=== PATIENT | female | born 1955 | race African-American/Black ===

== ENCOUNTER → 2016-12-25 | Day surgery (SDC) | payer MEDICAID ==
[~2016-12-25] VITALS: Ht 160 cm; Wt 82.2 kg
[~2016-12-25] MED LIST: *HYDROmorphone PF 1 MG VIAL PERIprocedural Use ONLY ONE; *ONDANSETRON 4 MG VIAL PERIprocedural Use ONLY ONE; ALBU6.7H INH; ALBUAER3 INH; AMIT25TA9 PO; AMLO10TA2 PO; ASPI81TA5 PO; ATEN100T PO; ATOR40TA16 PO; BLOOD GLUCOSE T1 TES; BUPIVACAINE HCL PF 0.5% 30 ML VIAL INFIL ONE; CHOL100025 CHEW; CLINDAMYCIN PHOS 900 MG/6 ML VIAL ONE; DEXAMETHASONE SOD PHOS 4 MG/ML VIAL ONE; DEXT 5%-NACL 0.45% 1000 ML INJ 1,000 ML IV SCH; DO NOT ADM ANY ANTICOAGULANT DRUGS XX PRN; FAMOTIDINE 20 MG/2 ML VIAL ONE; FLUT50SP EACH NARE; HYDR25TA5 PO; HYDR50TA3 PO; IBUP800T23 PO; INSU-170; INSU-98; LACTATED RINGER'S 1000 ML INJ 1,000 ML ONE; LANTUS2P SQ; LIDOCAINE HCL 2% 50 ML VIAL INFIL ONE; LISI40TA PO; MIDAZOLAM HCL 2 MG/2 ML VIAL ONE; MORPHINE SULFATE 10 MG/ML INJ ONE; ONDANSETRON HCL 4 MG/2 ML VIAL IV PUSH ONE; ONETTES4; PERC5TAB12 PO; POVIDONE IODINE 10% OINT 1 PACKET TOP ONE; PROPOFOL 200 MG/20 ML AMP IV ONE; QUET150XR PO; SODIUM CHLORIDE 0.9% FLUSH 5 ML FLUSH IVF PRN; SODIUM CHLORIDE 0.9% FLUSH 5 ML FLUSH IVF SCH; SODIUM CHLORIDE 0.9% INJ 100 ML ONE; ePHEDrine/NS 25 MG/5 ML SYR IV ONE
[2016-12-25 06:42] VITALS: BP 145/78; PULSE 77; RESP 18; TEMP 97.8; O2SAT 99
[2016-12-25 06:57] LABS: HEMATOCRIT 35.4 % (35.0-46.0); MEAN CELL VOLUME 86.3 FL (80.0-100.0); MEAN CORPUSCULAR HGB CONC 34.7 % (32.0-36.0); PLATELET COUNT 203 TH/MM3 (150-450); RED CELL DISTRIBUTION WIDTH 12.9 % (11.6-17.2); REVIEW FLAG FINAL; WHITE BLOOD COUNT 14.4 TH/MM3 (4.0-11.0)
--- NOTE | 2016-12-25 07:57 | HP.UPD ---
H&P Update Date: Dec 25, 2016 Note The Pre-Admit History and Physical Examination regarding the above named patient was reviewed (including, but not limited to, vital signs, medications, allergies, co-morbid conditions), and upon re-examination it is noted that: Indicated with "X" x - the patient's condition has not significantly changed since the last examination. [] - the patient's condition has changed since the last examination. Changes: Elisa Maurer MD Dec 25, 2016 07:57
--- NOTE | 2016-12-25 08:58 | HHI.PR ---
Immediate Post Op Note Procedure Date: Dec 25, 2016 Pre Op Diagnosis: (1) Trigger finger, left ring finger Post Op Diagnosis: (1) Trigger finger, left ring finger Surgeon: Elisa Maurer MD Kiln Charger(s): Scottie Loza PA-C Procedure: Release of the left ring trigger finger. Anesthesia: General Drains: None Tourniquet time (min at mmHg) 13 minutes at 200 mm Hg Patient to: PACU Patient Condition: Good Date/Time of Procedure: SEE SURGICAL CARE RECORD Elisa Maurer MD Dec 25, 2016 08:58
[2016-12-25 10:23] VITALS: TEMP 98
[2016-12-25 11:00] VITALS: BP 108/64; PULSE 70; RESP 15; O2SAT 99
--- NOTE | 2016-12-27 10:37 | MP ---
cc: JUNE SALAZAR M.D. DATE OF SURGERY: 12/25/2016 PREOPERATIVE DIAGNOSIS Stenosing tenosynovitis of the left ring finger. POSTOPERATIVE DIAGNOSIS Stenosing tenosynovitis of the left ring finger. PROCEDURE: Tenovaginotomy of the left ring finger. ANESTHESIA: General. SURGEON Dr. Salazar INDICATION The patient is a 61-year-old female with stenosing tenosynovitis of the left finger. FINDINGS: At the completion of the procedure, there was complete passive range of motion of the finger with no evidence of clicking or locking. The A1 naila was quite thick. TOURNIQUET TIME: 13 minutes. DESCRIPTION OF PROCEDURE: The patient was seen preoperatively where the site and side identified and marked. The patient was then taken to the operating room, placed in supine position. Her identity was checked against the arm band and the consent form, site and side confirmed, time-out called prior to beginning of the procedure. The left upper extremity was prepped with Hibiclens and draped in the usual sterile fashion. The area to be incised was outlined with a marking pen as an oblique incision over the A1 naila. The arm was then exsanguinated and the tourniquet inflated to 200 mmHg. Lidocaine 2% plain mixed in equal amounts with bupivacaine 0.5% plain was then injected at the area to be operated. A 15 blade was used make the incision down through the skin, down through the subcutaneous tissue. Using a spread technique the A1 naila was identified and divided. The finger was put through a full range of motion. There was some adhesions between the superficial and deep flexors and these were divided. The tendons were pulled and this showed excellent range of motion. The wound was then copiously irrigated with saline and closed with a running 5-0 nylon suture. The tourniquet was then released after 13 minutes of tourniquet time, pressure was applied. After several minutes there was no evidence of any oozing. A dressing was applied using povidone-iodine ointment, Adaptic Telfa, 4x4s and hand wrap. The patient was then taken from the operating room to the recovery room in satisfactory condition having tolerated the procedure well. Postoperative instructions include keeping the arm elevated, keeping it clean and dry, and returning in several days for follow up. The patient was given a prescription for ibuprofen. MD DONNIE Lema/RAJIV /8:59 AM /10:31 AM
== END | disposition home or self-care (01) ==
LOC: PHSDC 06:12
PROVIDERS: ATTEND Specialist
DX: M65.342 Trigger finger, left ring finger (principal); M65.842 Other synovitis and tenosynovitis, left hand; E11.9 Type 2 diabetes mellitus without complications; I10 Essential (primary) hypertension
CPT/HCPCS: 01810; 26055; 36415; 82948; 85027; J1100; J1170; J2250; J2270; J2405; J3010; J7120

== ENCOUNTER → 2017-03-19 | Day surgery (SDC) | payer MEDICAID ==
[~2017-03-19] VITALS: Ht 160 cm; Wt 86.5 kg
[~2017-03-19] MED LIST changes: -*HYDROmorphone PF 1 MG VIAL PERIprocedural Use ONLY ONE; -*ONDANSETRON 4 MG VIAL PERIprocedural Use ONLY ONE; -ALBU6.7H INH; -BUPIVACAINE HCL PF 0.5% 30 ML VIAL INFIL ONE; +BUPIVACAINE HCL PF 0.5% 30 ML VIAL ONE; -DEXAMETHASONE SOD PHOS 4 MG/ML VIAL ONE; -DO NOT ADM ANY ANTICOAGULANT DRUGS XX PRN; -HYDR25TA5 PO; -LIDOCAINE HCL 2% 50 ML VIAL INFIL ONE; +MEPERIDINE HCL 25 MG/ML VIAL ONE; +METOPROLOL TARTRATE 25 MG TAB ONE; -MORPHINE SULFATE 10 MG/ML INJ ONE; -POVIDONE IODINE 10% OINT 1 PACKET TOP ONE; +POVIDONE IODINE 10% OINT 1 PACKET TOPICAL ONE; +SODIUM CHLOR 0.9% 250 ML INJ 250 ML ONE; +[UNRECOGNIZED DRUG - CODE]; +[UNRECOGNIZED DRUG - CODE]
[2017-03-19 07:40] VITALS: BP 146/84; PULSE 85; RESP 16; TEMP 98.2; O2SAT 100
[2017-03-19 08:10] LABS: HEMATOCRIT 38.9 % (35.0-46.0); MEAN CELL VOLUME 86.5 FL (80.0-100.0); MEAN CORPUSCULAR HEMOGLOBIN 28.8 PG (27.0-34.0); MEAN CORPUSCULAR HGB CONC 33.3 % (32.0-36.0); PLATELET COUNT 226 TH/MM3 (150-450); RED CELL DISTRIBUTION WIDTH 13.2 % (11.6-17.2)
[2017-03-19 08:16] LABS: REVIEW FLAG FINAL
--- NOTE | 2017-03-19 08:39 | HP.UPD ---
H&P Update Date: Mar 19, 2017 Note The Pre-Admit History and Physical Examination regarding the above named patient was reviewed (including, but not limited to, vital signs, medications, allergies, co-morbid conditions), and upon re-examination it is noted that: Indicated with "X" x - the patient's condition has not significantly changed since the last examination. [] - the patient's condition has changed since the last examination. Changes: Elisa Maurer MD Mar 19, 2017 08:38
--- NOTE | 2017-03-19 12:01 | HHI.PR ---
Immediate Post Op Note Procedure Date: Mar 19, 2017 Pre Op Diagnosis: (1) Injury of digital nerve of finger Injury to radial digital nerve, left ring finger. Post Op Diagnosis: (1) Injury of digital nerve of finger Injury to radial digital nerve, left ring finger. Surgeon: Elisa Maurer MD Tipple Supervisor(s): Scottie Loza PA-C Procedure: Neurolysis, radial digital nerve of left ring finger with application of nerve wrap. Complications: n/a Specimen(s) removed: n/a Estimated blood loss: n/a Anesthesia: General Drains: None Tourniquet time (min at mmHg) 48 minutes at 220mmHg Patient to: PACU Patient Condition: Good Date/Time of Procedure: SEE SURGICAL CARE RECORD Teressa Loza Mar 19, 2017 12:01
[2017-03-19 13:30] VITALS: BP 128/86; PULSE 88; TEMP 98; O2SAT 96
[2017-03-19 13:40] VITALS: RESP 16
--- NOTE | 2017-03-19 22:04 | MP ---
cc: JUNE SALAZAR MD DATE OF SURGERY 03/19/17 PREOPERATIVE DIAGNOSIS Nerve pain and injury radial digital nerve of the left ring finger. POSTOPERATIVE DIAGNOSIS Nerve pain and injury radial digital nerve of the left ring finger. PROCEDURE Neurolysis and application of nerve wrap of the radial digital nerve of the left ring finger. ANESTHESIA General SURGEON Selin Salazar MD ASSOCIATE TRAINER Tawana Loza PA-C. INDICATIONS A 61-year-old female who has had an injection of steroid into her left fourth finger for trigger finger. She developed severe pain and continued to have triggering. The trigger was released, but the patient continued to have pain. Workup revealed the presence of dysfunction of the radial digital nerve of the left ring finger. FINDINGS The nerve itself appeared to be intact. There was some scar tissue around the nerve at the completion of the procedure. Neurolysis has been performed and a nerve wrap placed around the finger. TOURNIQUET TIME 48 minutes. PROCEDURE IN DETAIL The patient was seen preoperatively where the site and side were identified and marked. The patient was then taken to the operating room, placed in a supine position. Her identity was checked against the arm band and the consent form, site and side confirmed, time-out called prior to beginning the procedure. The left upper extremity was prepped with Hibiclens and draped in usual sterile fashion. The area to be incised was outlined with a marking pen as a zigzag incision over the area of the radial digital nerve in the palm where the patient had been injected. The arm was exsanguinated and the tourniquet inflated to 220 mmHg. Bupivacaine 0.5% plain was used to make a common digital nerve block to the middle and ring fingers as well as a dorsal block. A #15 blade was then used to make the incision down through the skin down to the subcutaneous tissue under loupe magnification. The flap was elevated and raised exposing the nerve. The tissue around the nerve was lysed,and a Pacinian corpuscle which was sitting on top of the nerve was removed. The nerve itself appeared to be intact and there was no evidence of a neuroma in continuity. The decision was made to put a nerve wrap at the neurolysis. A 2 mm nerve guide was taken and cut the right size. It was then opened longitudinally and placed around the nerve and closed with 8-0 Ethilon suture material under loupe magnification. Once this was completed, the seam was placed on the dorsal aspect of the nerve. The wound was irrigated with saline and injected with additional bupivacaine 0.5% plain and closed with interrupted and running 5-0 Prolene. The tourniquet was released after 48 minutes of tourniquet time. Pressure was applied. After several minutes, there was no evidence of any oozing. A dressing was applied using povidone-iodine ointment, Adaptic, Telfa, fluffy gauze and hand wrap and a splint. The patient was then taken from the operating room to the recovery room in satisfactory condition having tolerated the procedure well. Postoperative instructions include keeping the arm elevated, keeping it clean and dry and returning in several days for follow up. MD DONNIE Lema/ /12:03 PM /9:50 PM KATARZYNA
== END | disposition home or self-care (01) ==
LOC: PHSDC 07:14
PROVIDERS: ATTEND Specialist
DX: S64.495A Injury of digital nerve of left ring finger, initial encounter (principal); M79.2 Neuralgia and neuritis, unspecified; E11.9 Type 2 diabetes mellitus without complications; J44.9 Chronic obstructive pulmonary disease, unspecified; Z01.818 Encounter for other preprocedural examination
CPT/HCPCS: 01810; 36415; 64910; 82948; 85027; 94664; C9352; J2175; J2250; J2405; J7120; J7050

== ENCOUNTER 2017-06-04 09:00 | Emergency (ER) | payer MEDICAID ==
[~2017-06-04] VITALS: Ht 160 cm; Wt 89.0 kg
[~2017-06-04 09:00] MED LIST changes: -AMIT25TA9 PO; -BUPIVACAINE HCL PF 0.5% 30 ML VIAL ONE; -CHOL100025 CHEW; -CLINDAMYCIN PHOS 900 MG/6 ML VIAL ONE; -DEXT 5%-NACL 0.45% 1000 ML INJ 1,000 ML IV SCH; -FAMOTIDINE 20 MG/2 ML VIAL ONE; -IBUP800T23 PO; -INSU-170; -INSU-98; -LACTATED RINGER'S 1000 ML INJ 1,000 ML ONE; +MEDR4PAK PO; -MEPERIDINE HCL 25 MG/ML VIAL ONE; -METOPROLOL TARTRATE 25 MG TAB ONE; -MIDAZOLAM HCL 2 MG/2 ML VIAL ONE; -ONDANSETRON HCL 4 MG/2 ML VIAL IV PUSH ONE; -POVIDONE IODINE 10% OINT 1 PACKET TOPICAL ONE; -PROPOFOL 200 MG/20 ML AMP IV ONE; -SODIUM CHLOR 0.9% 250 ML INJ 250 ML ONE; -SODIUM CHLORIDE 0.9% FLUSH 5 ML FLUSH IVF PRN; -SODIUM CHLORIDE 0.9% FLUSH 5 ML FLUSH IVF SCH; -SODIUM CHLORIDE 0.9% INJ 100 ML ONE; -ePHEDrine/NS 25 MG/5 ML SYR IV ONE
[2017-06-04 09:05] VITALS: BP 121/81; PULSE 92; RESP 18; TEMP 98; O2SAT 99
[2017-06-04] MEDS ORDERED: OXYC-395 PO (09:47)
[2017-06-04] MEDS ORDERED: ACETAMINOPHEN/HYDROcodone 325 MG/5 MG TAB PO ONE (10:00)
--- NOTE | 2017-06-04 11:04 | RADRPT ---
EXAM DATE/TIME: 06/04/2017 10:21 [facility] COMPARISON: No previous studies available for comparison. INDICATIONS : Left knee pain after falling today. MEDICAL HISTORY : Hypertension. Chronic obstructive pulmonary disease. SURGICAL HISTORY : Total knee replacement, left. ENCOUNTER: Initial ACUITY: 1 day PAIN SCORE: 10/10 LOCATION: Left knee FINDINGS: There is a left knee arthroplasty in place. Osseous structures appear intact without evidence for acu te fracture. The arthroplasty components are in anatomic alignment without evidence for lucency to dalton ggest loosening. Surgical chris in the soft tissues with small suprapatellar effusion. CONCLUSION: 1. Left knee arthroplasty in anatomic alignment without evidence for hardware failure. 2. No acute fracture or dislocation. Anand Rodriguez MD on June 04, 2017 at 11:00 Board Certified Radiologist. This report was verified electronically.
--- NOTE | 2017-06-04 11:09 | RADRPT ---
EXAM DATE/TIME: 06/04/2017 10:18 [facility] COMPARISON: No previous studies available for comparison. INDICATIONS : Left hip pain after falling today. MEDICAL HISTORY : Hypertension. Chronic obstructive pulmonary disease. SURGICAL HISTORY : Total knee replacement, left. ENCOUNTER: Initial ACUITY: 1 day PAIN SCORE: 10/10 LOCATION: Left proximal FINDINGS: AP view of the pelvis with 4 views of the left hip joint demonstrate no acute fracture or dislocation . Mineralization is normal. There is joint space narrowing and osteophytes at the hip joints bilatera lly. No soft tissue abnormality or radiopaque foreign body is identified. CONCLUSION: Bilateral hip joint osteoarthritis. No acute finding is identified. Zen Real MD on June 04, 2017 at 11:06 Board Certified Radiologist. This report was verified electronically.
[2017-06-04 11:36] VITALS: RESP 17
--- NOTE | 2017-06-04 12:28 | PD ---
HPI Chief Complaint: Fall Time Seen by Provider: 09:38 Travel History International Travel<30 days: No Contact w/Intl Traveler<30days: No Traveled to known affect area: No History of Present Illness HPI Is a 41-year-old woman presents emergent Priddy of left knee pain. She had recent surgery for left knee replacement in [place]. She was discharged home a couple days ago. She states she's been unsteady and fell. She has supposed to have home health arranged for states no one is calm. She states she was trying to sit to her bedside commode the day given her but she fell because it was too low. Her surgery was May [address] Campbell in [place]. History Past Medical History Narrative Medical Hypertension Diabetes Social History Alcohol Use: No Tobacco Use: Yes (10 CIGARETTES/DAY ) Allergies-Medications (Allergen,Severity, Reaction): Coded Allergies: ampicillin (Verified Allergy, Severe, Lethargy, HIVES, 06/04/17) meloxicam (Verified Allergy, Severe, Itching, 06/04/17) morphine (Verified Allergy, Severe, Itching, 06/04/17) acetaminophen (Verified Adverse Reaction, Severe, Nausea/Vomiting, 06/04/17 ) propoxyphene (Verified Adverse Reaction, Severe, Nausea/Vomiting, 06/04/17) Reported Meds & Prescriptions Reported Meds & Active Scripts Active Lantus Inj (Insulin Glargine) 100 Unit/Ml Inj 90 Units SQ DAILY 90 units at 6am Proair Hfa 8.5 GM Inh (Albuterol Sulfate) 90 Mcg/Act Aer 1 Puff INH Q4H PRN 108 mcg/actuation Fluticasone Nasal [place] 50 Mcg/Act Naspr 50 Mcg EACH NARE BID 50 mcg/spray Seroquel XR (Quetiapine Fumarate) 150 Mg Tab 150 Mg PO DAILY Aspirin DR (Aspirin) 81 Mg Tabdr 81 Mg PO DAILY Amlodipine (Amlodipine Besylate) 10 Mg Tab 10 Mg PO DAILY Atorvastatin (Atorvastatin Calcium) 40 Mg Tab 40 Mg PO HS Lisinopril 40 Mg Tab 40 Mg PO DAILY Atenolol 100 Mg Tab 100 Mg PO DAILY Hydrochlorothiazide 50 Mg Tab 50 Mg PO DAILY Reported Oxycodone (Oxycodone HCl) 10 Mg Tab 10 Mg PO Q4H PRN Review of Systems Except as stated in HPI: all other systems reviewed are Neg Physical Exam Narrative GENERAL: Well-appearing 62 year-old woman, no acute distress. SKIN: Focused skin assessment warm/dry. HEAD: Atraumatic. Normocephalic. EYES: Pupils equal and round. No scleral icterus. No injection or drainage. ENT: No nasal bleeding or discharge. Mucous membranes pink and moist. NECK: Trachea midline. No JVD. CARDIOVASCULAR: Regular rate and rhythm. No murmur appreciated. RESPIRATORY: No accessory muscle use. Clear to auscultation. Breath sounds equal bilaterally. GASTROINTESTINAL: Abdomen soft, non-tender, nondistended. Hepatic and splenic margins not palpable. MUSCULOSKELETAL: No obvious deformities. Left knee is healing well. The incisions well approximated with chris still in place. Is a little bit of effusion a little warm. There is no erythema or redness. Some tenderness. Limited range of motion. NEUROLOGICAL: Awake and alert. No obvious cranial nerve deficits. Motor grossly within normal limits. Normal speech. PSYCHIATRIC: Appropriate mood and affect; insight and judgment normal. Data Data Last Documented VS Vital Signs Date Time Temp Pulse Resp B/P (MAP) Pulse Ox O2 Delivery O2 Flow Rate FiO2 06/04/17 11:36 17 06/04/17 09:05 98.0 92 121/81 (94) 99 Orders Orders Hip, Ap Only W Ap Pelvis (06/04/17 ) Knee, Complete (4vws) (06/04/17 ) Acetamin-Hydrocod 325-5 Mg ([place] 5-325 (06/04/17 10:00) Oxycodone (Roxicodone) (06/04/17 10:15) MDM Medical Decision Making Medical Screen Exam Complete: Yes Emergency Medical Condition: Yes Differential Diagnosis Left knee pain, fall, instability, other Narrative Course Medical decision making This 62 year-old woman status post left knee replacement presents with a fall from home. She looks well. No evidence significant injuries. She is tearful and crying and having a lot of concerns about her rehabilitation. She doesn't state it's unclear if she just doesn't know what's happening or if they just didn't set up a good enough discharge plan. manager regional looked indurated her Medicaid insurance only pay for a few days appropriate long term and rehabilitation. They will not pay for home physical therapy. We can get her an elevated toilet seat, I will set her up for physical therapy at the [address] [place] [id number], we'll give her prescription for home health nursing. Diagnosis Primary Impression: Left knee pain Patient Instructions: General Instructions Additional Instructions: Follow-up with a [address] [place] [id number] for outpatient physical therapy as discussed. Follow-up with your surgeon in [place] in the next one to 2 days. Med/Other Pt SpecificInfo: No Change to Meds Disposition: 01 DISCHARGE HOME Condition: Stable Angel Mayen MD Jun 04, 2017 12:28
--- NOTE | 2017-06-04 12:29 | HHI.FF ---
Face to Face Verification Diagnosis: (1) Status post left knee replacement (2) Falls (3) Left knee pain Home Health Nursing Order: Medical education Signs/symptoms of disease process Nursing assessment with vital signs Home Health Aide Order: To Assist In: Bathing and personal care, sliver cutter and meal prep I have seen patient Bonnie Anguiano on 06/04/17. My clinical findings support the need for the requested home health care services because: Ltd mobility - disease progression High risk of falls I certify that my clinical findings support that this patient is homebound because: Impaired cognitive ability/safety Unsteady gait/balance Unsafe to leave home unassisted Angel Mayen MD Jun 04, 2017 12:29
[2017-06-04] MEDS ORDERED: RAISED TOILET S1 MI1 (12:31)
[2017-06-04 13:23] VITALS: BP 128/83; TEMP 97.9
[2017-07-08] MEDS ORDERED: LISI40TA PO (06:47)
[2017-07-08] MEDS ORDERED: HYDR50TA3 PO (06:47)
[2017-07-08] MEDS ORDERED: LANTUS2P SQ (06:47)
[2017-07-08] MEDS ORDERED: ALBUAER3 INH (06:47)
[2017-07-08] MEDS ORDERED: PERI8.6T PO (06:47)
[2017-07-08] MEDS ORDERED: ATEN100T PO (06:47)
[2017-07-08] MEDS ORDERED: FLUT50SP EACH NARE (06:47)
[2017-07-08] MEDS ORDERED: QUET150XR PO (06:47)
[2017-07-08] MEDS ORDERED: ASPI81TA5 PO (06:47)
[2017-07-08] MEDS ORDERED: ATOR40TA16 PO (06:47)
[2017-07-08] MEDS ORDERED: AMLO10TA2 PO (06:47)
[2017-07-08] MEDS ORDERED: APIX5TAB PO (07:01)
== END 2017-06-04 13:22 | disposition home or self-care (01) ==
LOC: NEPD 09:00
DX: M25.562 Pain in left knee (principal); I10 Essential (primary) hypertension; E11.9 Type 2 diabetes mellitus without complications; F17.210 Nicotine dependence, cigarettes, uncomplicated; Z79.4 Long term (current) use of insulin; Z79.899 Other long term (current) drug therapy; Z79.82 Long term (current) use of aspirin; Z88.5 Allergy status to narcotic agent; Z88.8 Allergy status to other drugs, medicaments and biological substances
CPT/HCPCS: 73501; 73564; 99283

== ENCOUNTER 2017-07-07 17:26 | Emergency (ER) | payer MEDICAID ==
[~2017-07-07] VITALS: Ht 160 cm; Wt 75.0 kg
[~2017-07-07 17:26] MED LIST changes: -BLOOD GLUCOSE T1 TES; -MEDR4PAK PO; -ONETTES4; +OXYC-395 PO; -PERC5TAB12 PO; +RAISED TOILET S1 MI1; -[UNRECOGNIZED DRUG - CODE]; -[UNRECOGNIZED DRUG - CODE]
[2017-07-07 17:28] VITALS: BP 148/84; PULSE 126; RESP 18; TEMP 98; O2SAT 99
[2017-07-07] MEDS ORDERED: SODIUM CHLOR 0.9% 1000 ML INJ 1,000 ML IV ONE (18:30)
--- NOTE | 2017-07-07 18:46 | PD ---
HPI Chief Complaint: Cardiac Complaint Time Seen by Provider: 18:21 Travel History International Travel<30 days: No Contact w/Intl Traveler<30days: No Traveled to known affect area: No History of Present Illness HPI 62-year-old female patient with history of left knee replacement done by Dr. Mora on May 25, presents to the ER today because she states that she has been having a fast heart rate, is having more pain in the last 4 days in her right knee and down her right leg. She reports palpitations. She denies any chest pains, shortness of breath, fevers, or any other symptoms. She states that she is still waiting to get rehabilitation for her knee, has not been able to bend it since the surgery. She states that she had seen her primary care doctor today and was sent in to rule out blood clot in leg. Modifying Factors: None Associated Signs & Symptoms: Left knee replacement surgery, left leg pain Risk Factors: Recent surgery PFSH Past Medical History Hx Anticoagulant Therapy: Yes (ASA) Arthritis: Yes (RA) Autoimmune Disease: Yes (LUPUS) Anxiety: Yes Depression: Yes Cancer: No Cardiovascular Problems: Yes High Cholesterol: Yes COPD: Yes Diabetes: Yes Patient Takes Glucophage: No Diminished Hearing: No Endocrine: Yes Genitourinary: No Hepatitis: No Hiatal Hernia: No Herniated Disk: Yes Hypertension: Yes Immune Disorder: Yes (RA) Musculoskeletal: Yes (arthritis l knee , back and neck pain with herniated disc ) Psychiatric: Yes ( ) Reproductive: No Respiratory: Yes ( ) Thyroid Disease: No Past Surgical History Abdominal Surgery: Yes AICD: No Cardiac Surgery: No Ear Surgery: No Endocrine Surgery: No Eye Surgery: No Genitourinary Surgery: Yes (CYST REMOVED ) Gynecologic Surgery: No Joint Replacement: No Oral Surgery: No Pacemaker: No Thoracic Surgery: No Other Surgery: Yes Family History Family Myocardial Infarction: Yes Social History Alcohol Use: No Tobacco Use: Yes (10 CIGARETTES/DAY ) Substance Use: No Allergies-Medications (Allergen,Severity, Reaction): Coded Allergies: ampicillin (Verified Allergy, Severe, Lethargy, HIVES, 07/07/17) meloxicam (Verified Allergy, Severe, Itching, 07/07/17) morphine (Verified Allergy, Severe, Itching, 07/07/17) acetaminophen (Verified Adverse Reaction, Severe, Nausea/Vomiting, 07/07/17 ) propoxyphene (Verified Adverse Reaction, Severe, Nausea/Vomiting, 07/07/17) Reported Meds & Prescriptions Reported Meds & Active Scripts Active Raised Toilet Seat/Lock (Device) 1 Mis Mis Ea .ROUTE DIRECTED Lantus Inj (Insulin Glargine) 100 Unit/Ml Inj 90 Units SQ DAILY 90 units at 6am Proair Hfa 8.5 GM Inh (Albuterol Sulfate) 90 Mcg/Act Aer 1 Puff INH Q4H PRN 108 mcg/actuation Fluticasone Nasal [place] 50 Mcg/Act Naspr 50 Mcg EACH NARE BID 50 mcg/spray Seroquel XR (Quetiapine Fumarate) 150 Mg Tab 150 Mg PO DAILY Aspirin DR (Aspirin) 81 Mg Tabdr 81 Mg PO DAILY Amlodipine (Amlodipine Besylate) 10 Mg Tab 10 Mg PO DAILY Atorvastatin (Atorvastatin Calcium) 40 Mg Tab 40 Mg PO HS Lisinopril 40 Mg Tab 40 Mg PO DAILY Atenolol 100 Mg Tab 100 Mg PO DAILY Hydrochlorothiazide 50 Mg Tab 50 Mg PO DAILY Reported Oxycodone (Oxycodone HCl) 10 Mg Tab 10 Mg PO Q4H PRN Review of Systems Except as stated in HPI: all other systems reviewed are Neg Physical Exam Narrative GENERAL: Well-developed elderly -[place] female patient currently in mild distress. Awake and oriented 3. SKIN: Focused skin assessment warm/dry. HEAD: Atraumatic. Normocephalic. EYES: Pupils equal and round. No scleral icterus. No injection or drainage. ENT: No nasal bleeding or discharge. Mucous membranes pink and moist. NECK: Trachea midline. No JVD. CARDIOVASCULAR: Fast and regular rhythm. No murmur appreciated. RESPIRATORY: No accessory muscle use. Clear to auscultation. Breath sounds equal bilaterally. GASTROINTESTINAL: Abdomen soft, non-tender, nondistended. Hepatic and splenic margins not palpable. MUSCULOSKELETAL: No obvious deformities. No clubbing. No cyanosis. No edema. EXTREMITIES: No clubbing, cyanosis, or edema. There is tenderness to palpation at the left knee, decreased range of motion due to pain, tenderness to palpation in the left calf area as well. NEUROLOGICAL: Awake and alert. No obvious cranial nerve deficits. Motor grossly within normal limits. Normal speech. PSYCHIATRIC: Appropriate mood and affect; insight and judgment normal. Data Data Last Documented VS Vital Signs Date Time Temp Pulse Resp B/P (MAP) Pulse Ox O2 Delivery O2 Flow Rate FiO2 07/07/17 18:43 100 Room Air 07/07/17 18:17 18 07/07/17 17:28 98.0 126 148/84 (105) Orders Orders Us Leg Venous Doppler (07/07/17 18:15) Complete Blood Count With Diff (07/07/17 18:21) Comprehensive Metabolic Panel (07/07/17 18:21) Prothrombin Time / Inr (Pt) (07/07/17 18:21) Act Partial Throm Time (Ptt) (07/07/17 18:21) Lactic Acid Sepsis Protocol (07/07/17 18:21) Blood Culture (07/07/17 18:21) Chest, Single Ap (07/07/17 18:21) Blood Glucose (07/07/17 18:21) Ecg Monitoring (07/07/17 18:21) Iv Access Insert/Monitor (07/07/17 18:21) Oximetry (07/07/17 18:21) Oxygen Administration (07/07/17 18:21) Sodium Chlor 0.9% 1000 Ml Inj (Ns 1000 M (07/07/17 18:30) Knee, Complete (4vws) (07/07/17 19:04) Labs Laboratory Tests Test 07/07/17 16:30 White Blood Count 14.5 TH/MM3 Red Blood Count 4.26 MIL/MM3 Hemoglobin 12.0 GM/DL Hematocrit 35.5 % Mean Corpuscular Volume 83.3 FL Mean Corpuscular Hemoglobin 28.1 PG Mean Corpuscular Hemoglobin Concent 33.7 % Red Cell Distribution Width 14.0 % Platelet Count 261 TH/MM3 Mean Platelet Volume 9.6 FL Neutrophils (%) (Auto) 57.1 % Lymphocytes (%) (Auto) 35.0 % Monocytes (%) (Auto) 5.7 % Eosinophils (%) (Auto) 1.3 % Basophils (%) (Auto) 0.9 % Neutrophils # (Auto) 8.3 TH/MM3 Lymphocytes # (Auto) 5.1 TH/MM3 Monocytes # (Auto) 0.8 TH/MM3 Eosinophils # (Auto) 0.2 TH/MM3 Basophils # (Auto) 0.1 TH/MM3 CBC Comment DIFF FINAL Differential Comment MDM Medical Decision Making Medical Screen Exam Complete: Yes Emergency Medical Condition: Yes Medical Record Reviewed: Yes Interpretation(s) Laboratory Tests Test 07/07/17 16:30 White Blood Count 14.5 TH/MM3 (4.0-11.0) Neutrophils # (Auto) 8.3 TH/MM3 (1.8-7.7) Lymphocytes # (Auto) 5.1 TH/MM3 (1.0-4.8) Differential Diagnosis Left knee and leg pains: Rule out DVT Narrative Course Ultrasound was ordered to rule out DVT. X-ray ordered to rule out acute fractures or hardware issues. Lab work ordered. Physician Communication Physician Communication Case is signed out to Dr. Cueva at 7 PM pending workup. Disposition based on workup. Diagnosis Primary Impression: Left leg pain Additional Impression: Status post left knee replacement Condition: Stable Renetta Melissa MD Jul 07, 2017 18:46
[2017-07-07 18:52] LABS: AUTOMATED NEUTROPHIL # 8.3 TH/MM3 (1.8-7.7); BASOPHIL # 0.1 TH/MM3 (0-0.2); BASOPHIL % 0.9 % (0.0-2.0); EOSINOPHIL # 0.2 TH/MM3 (0-0.4); EOSINOPHIL % 1.3 % (0.0-4.0); HEMATOCRIT 35.5 % (35.0-46.0); HEMO FLAGS DIFF FINAL; LYMPHOCYTE # 5.1 TH/MM3 (1.0-4.8); MEAN CELL VOLUME 83.3 FL (80.0-100.0); MEAN CORPUSCULAR HEMOGLOBIN 28.1 PG (27.0-34.0); MEAN CORPUSCULAR HGB CONC 33.7 % (32.0-36.0); MONO % 5.7 % (0.0-8.0); NEUT % 57.1 % (16.0-70.0); PLATELET COUNT 261 TH/MM3 (150-450); RED BLOOD COUNT 4.26 MIL/MM3 (4.00-5.30); WHITE BLOOD COUNT 14.5 TH/MM3 (4.0-11.0)
[2017-07-07 19:08] LABS: ANION GAP 9 MEQ/L (5-15); AST (GOT) 15 U/L (15-37); BICARBONATE 25.5 MEQ/L (21.0-32.0); BLOOD UREA NITROGEN 28 MG/DL (7-18); CHLORIDE 101 MEQ/L (98-107); GLOMERULAR FILTRATION RATE 25 ML/MIN (>89); POTASSIUM 4.3 MEQ/L (3.5-5.1); SODIUM (NA) 135 MEQ/L (136-145)
[2017-07-07 19:10] LABS: ALT (GPT) 20 U/L (10-53)
[2017-07-07 19:11] LABS: ALKALINE PHOSPHATASE 189 U/L (45-117); TOTAL BILIRUBIN ADULT 0.4 MG/DL (0.2-1.0)
--- NOTE | 2017-07-07 19:15 | RADRPT ---
EXAM DATE/TIME: 07/07/2017 18:50 [facility] COMPARISON: CHEST SINGLE AP, March 30, 2016, 0:35. INDICATIONS : Short of breath, high pulse rate. MEDICAL HISTORY : None. SURGICAL HISTORY : None. ENCOUNTER: Initial ACUITY: 3 days PAIN SCORE: 0/10 LOCATION: Bilateral chest FINDINGS: A single view of the chest demonstrates the lungs to be symmetrically aerated without evidence of mas s, infiltrate or effusion. The cardiomediastinal contours are unremarkable. Osseous structures are intact. CONCLUSION: No evidence of acute cardiopulmonary disease. Zen Kruger MD on July 07, 2017 at 19:13 Board Certified Radiologist. This report was verified electronically.
[2017-07-07 19:17] LABS: APTT (PATIENT) 29.4 SEC (24.3-30.1); PROTHROMBIN TIME - PATIENT 10.8 SEC (9.8-11.6)
--- NOTE | 2017-07-07 19:24 | RADRPT ---
EXAM DATE/TIME: 07/07/2017 18:58 [facility] COMPARISON: No previous studies available for comparison. INDICATIONS : Left leg edema. MEDICAL HISTORY : Hypercholesterolemia. Hypertension. Chronic obstructive pulmonary disease. Arthritis. Diabetes. Lupus. SURGICAL HISTORY : Fibroid surgery. Genitourinary surgery, cyst removal. Bilateral knee repair. Left rotator cuff juan antonio arelis. Abdominal surgery, unspecified. ENCOUNTER: Initial ACUITY: 3 days PAIN SCORE: 10/10 LOCATION: Left leg. TECHNIQUE: Venous ultrasound of the leg was performed from the inguinal ligament to the proximal calf. Real-janina e, color Doppler and spectral tracing, compression and augmentation techniques were used. FINDINGS: There is normal compressibility of the deep venous system from the inguinal region to the proximal ca lf. No echogenic clot is seen in the lumen of the common femoral, femoral, popliteal, and posterior tibial veins. There is a normal response of the venous system to proximal and distal augmentation an d respiration. CONCLUSION: No venous thrombus of the left lower extremity. Zen Kruger MD on July 07, 2017 at 19:22 Board Certified Radiologist. This report was verified electronically.
[2017-07-07] MEDS ORDERED: HYDROmorphone HCL PF 1 MG/ML VIAL IV PUSH ONE ×2 (19:45→20:15)
--- NOTE | 2017-07-07 19:48 | RADRPT ---
EXAM DATE/TIME: 07/07/2017 19:29 [facility] COMPARISON: KNEE LEFT COMPLETE (4VWS), June 04, 2017, 10:21. INDICATIONS : Left knee pain for weeks. MEDICAL HISTORY : Hypercholesterolemia. Hypertension. Chronic obstructive pulmonary disease. Arthritis. Diabetes. Lupus . SURGICAL HISTORY : Fibroid surgery. Genitourinary surgery, cyst removal. Bilateral knee repair. Left rotator cuff surger y. Abdominal surgery, unspecified. ENCOUNTER: Initial ACUITY: 1 week PAIN SCORE: 9/10 LOCATION: Left knee. FINDINGS: Left total arthroplasty changes are again noted. No fracture, subluxation or evidence of hardware alhaji lure/loosening. A small, nonspecific joint effusion is noted. Atherosclerosis of the popliteal artery again seen. CONCLUSION: Small, nonspecific joint effusion. Otherwise left knee radiographs within normal limits. Previous art hroplasty. Zen Kruger MD on July 07, 2017 at 19:45 Board Certified Radiologist. This report was verified electronically.
--- NOTE | 2017-07-07 19:55 | PD ---
Physical Exam Date Seen by Provider: Jul 07, 2017 Narrative FOCUSED EXAM: LEFT KNEE HAS NO ERYTHEMA, NO DRAINAGE, SURGICAL WOUND HEALING WELL, NO STREAKING, NO LAD. NVI. Data Data Last Documented VS Vital Signs Date Time Temp Pulse Resp B/P (MAP) Pulse Ox O2 Delivery O2 Flow Rate FiO2 07/07/17 18:43 100 Room Air 07/07/17 18:17 18 07/07/17 17:28 98.0 126 148/84 (105) Orders Orders Us Leg Venous Doppler (07/07/17 18:15) Complete Blood Count With Diff (07/07/17 18:21) Comprehensive Metabolic Panel (07/07/17 18:21) Prothrombin Time / Inr (Pt) (07/07/17 18:21) Act Partial Throm Time (Ptt) (07/07/17 18:21) Lactic Acid Sepsis Protocol (07/07/17 18:21) Blood Culture (07/07/17 18:21) Chest, Single Ap (07/07/17 18:21) Blood Glucose (07/07/17 18:21) Ecg Monitoring (07/07/17 18:21) Iv Access Insert/Monitor (07/07/17 18:21) Oximetry (07/07/17 18:21) Oxygen Administration (07/07/17 18:21) Sodium Chlor 0.9% 1000 Ml Inj (Ns 1000 M (07/07/17 18:30) Knee, Complete (4vws) (07/07/17 19:04) Hydromorphone Pf Inj (Dilaudid Pf Inj) (07/07/17 20:15) Labs Laboratory Tests Test 07/07/17 16:30 White Blood Count 14.5 TH/MM3 Red Blood Count 4.26 MIL/MM3 Hemoglobin 12.0 GM/DL Hematocrit 35.5 % Mean Corpuscular Volume 83.3 FL Mean Corpuscular Hemoglobin 28.1 PG Mean Corpuscular Hemoglobin Concent 33.7 % Red Cell Distribution Width 14.0 % Platelet Count 261 TH/MM3 Mean Platelet Volume 9.6 FL Neutrophils (%) (Auto) 57.1 % Lymphocytes (%) (Auto) 35.0 % Monocytes (%) (Auto) 5.7 % Eosinophils (%) (Auto) 1.3 % Basophils (%) (Auto) 0.9 % Neutrophils # (Auto) 8.3 TH/MM3 Lymphocytes # (Auto) 5.1 TH/MM3 Monocytes # (Auto) 0.8 TH/MM3 Eosinophils # (Auto) 0.2 TH/MM3 Basophils # (Auto) 0.1 TH/MM3 CBC Comment DIFF FINAL Differential Comment Prothrombin Time 10.8 SEC Prothromb Time International Ratio 1.0 RATIO Activated Partial Thromboplast Time 29.4 SEC Blood Urea Nitrogen 28 MG/DL Creatinine 2.42 MG/DL Random Glucose 207 MG/DL Total Protein 8.0 GM/DL Albumin 3.7 GM/DL Calcium Level 9.5 MG/DL Alkaline Phosphatase 189 U/L Aspartate Amino Transf (AST/SGOT) 15 U/L Alanine Aminotransferase (ALT/SGPT) 20 U/L Total Bilirubin 0.4 MG/DL Sodium Level 135 MEQ/L Potassium Level 4.3 MEQ/L Chloride Level 101 MEQ/L Carbon Dioxide Level 25.5 MEQ/L Anion Gap 9 MEQ/L Estimat Glomerular Filtration Rate 25 ML/MIN Lactic Acid Level 2.6 mmol/L [facility] Medical Record Reviewed: Yes Supervised Visit with JOSE: No Narrative Course NO DVT, NO LEFT SHIFT NOR LEUKOCYTOSIS, NO E/O CELLULITIS ON EXAMINATION. WILL D/C AND RECC FOLLOW UP WITH ORTHO FOR FURTHER EVALUATION AND CARE (PER PATIENT SHE HAS TAKEN PERCOCET BEFORE) Diagnosis Primary Impression: Left leg pain Additional Impression: Status post left knee replacement Additional Instruction: PLEASE TAKE DONA-COLACE TO AVOID CONSTIPATION WHENEVER YOU TAKE OR USE OXYCODONE FOR PAIN, ALSO CALL YOUR ORTHOPEDIST TO FOLLOW UP FOR FURTHER ASSISTANCE. TODAY NO EVIDENCE OF KNEE INFECTION, NO BLOOD CLOT TO EXTREMITY EITHER. Scripts Sennosides-Docusate Sodium (Dona-Colace) 8.6-50 Mg Tab 2 TAB PO BID for Constipation, #60 TAB 0 Refills Prov: Omero Cueva MD 07/07/17 Oxycodone (Oxycodone) 10 Mg Tab 10 MG PO Q4H Y for PAIN, #28 TAB 0 Refills Prov: Omero Cueva MD 07/07/17 Disposition: 01 DISCHARGE HOME Condition: Stable Omero Cueva MD Jul 07, 2017 19:55
[2017-07-07] MEDS ORDERED: OXYC-395 PO (20:11)
[2017-07-07] MEDS ORDERED: PERI8.6T PO (20:11)
[2017-07-07 20:40] LABS: LACTIC ACID GHOST NOT REPORTABLE
[2017-07-08] MEDS ORDERED: AMLO10TA2 PO (06:47)
[2017-07-08] MEDS ORDERED: QUET150XR PO (06:47)
[2017-07-08] MEDS ORDERED: FLUT50SP EACH NARE (06:47)
[2017-07-08] MEDS ORDERED: PERI8.6T PO (06:47)
[2017-07-08] MEDS ORDERED: LISI40TA PO (06:47)
[2017-07-08] MEDS ORDERED: ATOR40TA16 PO (06:47)
[2017-07-08] MEDS ORDERED: ATEN100T PO (06:47)
[2017-07-08] MEDS ORDERED: LANTUS2P SQ (06:47)
[2017-07-08] MEDS ORDERED: HYDR50TA3 PO (06:47)
[2017-07-08] MEDS ORDERED: ALBUAER3 INH (06:47)
[2017-07-08] MEDS ORDERED: ASPI81TA5 PO (06:47)
[2017-07-08] MEDS ORDERED: APIX5TAB PO (07:01)
[2017-08-04] MEDS ORDERED: ALBUAER3 INH (16:22)
[2017-08-04] MEDS ORDERED: FLUT50SP EACH NARE (16:22)
== END 2017-07-07 20:54 | disposition home or self-care (01) ==
LOC: NEPE 17:26
DX: M79.605 Pain in left leg (principal); R00.0 Tachycardia, unspecified; R00.2 Palpitations; M32.9 Systemic lupus erythematosus, unspecified; F41.9 Anxiety disorder, unspecified; J44.9 Chronic obstructive pulmonary disease, unspecified; E11.9 Type 2 diabetes mellitus without complications; I10 Essential (primary) hypertension; Z96.652 Presence of left artificial knee joint
CPT/HCPCS: 71010; 73564; 80053; 83605; 85025; 85610; 85730; 87040; 93971; 96374; 99285; J1170; J7030

== ENCOUNTER 2017-08-01 10:52 | Emergency (ER) | payer MEDICAID ==
[~2017-08-01] VITALS: Ht 160 cm; Wt 81.0 kg
[~2017-08-01 10:52] MED LIST changes: +APIX5TAB PO; +PERI8.6T PO
[2017-08-01 11:01] VITALS: BP 121/75; PULSE 103; RESP 22; TEMP 98.7; O2SAT 98
[2017-08-01] MEDS ORDERED: SODIUM CHLOR 0.9% 1000 ML INJ 1,000 ML IV SCH (11:24)
[2017-08-01] MEDS ORDERED: HYDR-3583 PO (11:24)
[2017-08-01] MEDS ORDERED: ONDANSETRON HCL 4 MG/2 ML VIAL IV PUSH ONE (11:30)
[2017-08-01] MEDS ORDERED: HYDROmorphone HCL PF 1 MG/ML VIAL IV PUSH ONE ×2 (11:30→13:15)
--- NOTE | 2017-08-01 11:47 | PD ---
HPI Chief Complaint: Musculoskeletal Complaint Time Seen by Provider: 11:17 Travel History International Travel<30 days: No Contact w/Intl Traveler<30days: No Traveled to known affect area: No History of Present Illness HPI 62-year-old female that presents to the ED for evaluation of severe left knee pain. Per patient she has a history of chronic pain to that knee secondary to previous surgery. She had surgery on May of this year on that knee. She's been seen here twice for this. Per patient she's follow with her surgeon about a month ago and didn't mention to the surgeon that she was having a lot of discomfort. She was given a prescription for pain medication with some relief but she is about to run out of her Lortab. Per patient the pain is not improving. She's not been able to do much physical therapy secondary to insurance issues. Patient states that the pain is unbearable is 10 out of 10. Worse with movement. Per patient she cannot eat because the pain is so severe. She has been seen here twice for similar and was found to have unremarkable findings on imaging. Today she denies any new injuries or falls but she does state that she for the most part is bedridden secondary to discomfort. She has an appointment with her pain management this coming week but she states that she cannot wait. She came here by ambulance. She states no other concern of pain anywhere else but she states that the pain is just becoming more severe and not actually improving. Does have multiple allergies to different medications. Patient also mentions that she has been eating well because of the pain and she has not used her insulin and she is concerned about her sugars. PFSH Past Medical History Hx Anticoagulant Therapy: Yes (ASA) Arthritis: Yes (RA) Autoimmune Disease: Yes (LUPUS) Anxiety: Yes Depression: Yes Cancer: No Cardiovascular Problems: Yes High Cholesterol: Yes COPD: Yes Diabetes: Yes Patient Takes Glucophage: No Diminished Hearing: No Endocrine: Yes Genitourinary: No Hepatitis: No Hiatal Hernia: No Herniated Disk: Yes Hypertension: Yes Immune Disorder: Yes (RA) Musculoskeletal: Yes (arthritis l knee , back and neck pain with herniated disc ) Psychiatric: Yes ( ) Reproductive: No Respiratory: Yes ( ) Thyroid Disease: No Past Surgical History Abdominal Surgery: Yes AICD: No Cardiac Surgery: No Ear Surgery: No Endocrine Surgery: No Eye Surgery: No Genitourinary Surgery: Yes (CYST REMOVED ) Gynecologic Surgery: No Joint Replacement: Yes (knees ) Oral Surgery: No Pacemaker: No Thoracic Surgery: No Other Surgery: Yes Family History Family Myocardial Infarction: Yes Social History Alcohol Use: No Tobacco Use: Yes (10 CIGARETTES/DAY ) Substance Use: No Allergies-Medications (Allergen,Severity, Reaction): Coded Allergies: ampicillin (Verified Allergy, Severe, Lethargy, HIVES, 08/01/17) meloxicam (Verified Allergy, Severe, Itching, 08/01/17) morphine (Verified Allergy, Severe, Itching, 08/01/17) acetaminophen (Verified Adverse Reaction, Severe, Nausea/Vomiting, ) propoxyphene (Verified Adverse Reaction, Severe, Nausea/Vomiting, 08/01/17 ) Reported Meds & Prescriptions Reported Meds & Active Scripts Active Diclofenac Sodium DR (Diclofenac Sodium) 75 Mg Tabdr 75 Mg PO BID PRN Lantus Inj (Insulin Glargine) 100 Unit/Ml Inj 90 Units SQ DAILY 90 units at 6am Proair Hfa 8.5 GM Inh (Albuterol Sulfate) 90 Mcg/Act Aer 1 Puff INH Q4H PRN 108 mcg/actuation Fluticasone Nasal Crump 50 Mcg/Act Naspr 50 Mcg EACH NARE BID 50 mcg/spray Aspirin DR (Aspirin) 81 Mg Tabdr 81 Mg PO DAILY Amlodipine (Amlodipine Besylate) 10 Mg Tab 10 Mg PO DAILY Atorvastatin (Atorvastatin Calcium) 40 Mg Tab 40 Mg PO HS Lisinopril 40 Mg Tab 40 Mg PO DAILY Atenolol 100 Mg Tab 100 Mg PO DAILY Hydrochlorothiazide 50 Mg Tab 50 Mg PO DAILY Reported Hydrocodone-Acetaminophen 10-325 mg Tab 1 Tab PO Q8HR PRN Review of Systems Except as stated in HPI: all other systems reviewed are Neg Physical Exam Narrative GENERAL: SKIN: Warm and dry. HEAD: Atraumatic. Normocephalic. EYES: Pupils equal and round. No scleral icterus. No injection or drainage. ENT: No nasal bleeding or discharge. Mucous membranes pink and moist. Tongue is midline. No uvula deviation. NECK: Trachea midline. No JVD. CARDIOVASCULAR: Regular rate and rhythm. No murmurs, S3, S4. RESPIRATORY: No accessory muscle use. Clear to auscultation. Breath sounds equal bilaterally. GASTROINTESTINAL: Abdomen soft, non-tender, nondistended. Hepatic and splenic margins not palpable. MUSCULOSKELETAL: Extremities without clubbing, cyanosis, or edema. No obvious deformities. Full range of motion of the upper and lower extremities bilaterally. 2+ pulses bilaterally. Patient does have some warmness compared to the right knee on the anterior left knee. Patient does have a surgical scar appears to be well-healed. Patient has pain with flexion. Minimal swelling if any. NEUROLOGICAL: Awake and alert. No obvious cranial nerve deficits. Motor grossly within normal limits. Five out of 5 muscle strength in the arms and legs. Normal speech. PSYCHIATRIC: Appropriate mood and affect; insight and judgment normal. Data Data Last Documented VS Vital Signs Date Time Temp Pulse Resp B/P (MAP) Pulse Ox O2 Delivery O2 Flow Rate FiO2 08/01/17 11:01 98.7 103 22 121/75 (90) 98 Room Air Orders Orders Complete Blood Count With Diff (08/01/17 11:22) Basic Metabolic Panel (Bmp) (08/01/17 11:22) Blood Culture (08/01/17 11:22) C-Reactive Protein (Crp) (08/01/17 11:22) Magnesium (Mg) (08/01/17 11:22) Iv Access Insert/Monitor (08/01/17 11:22) Knee, Complete (4vws) (08/01/17 ) Us Leg Venous Doppler (08/01/17 ) Hydromorphone Pf Inj (Dilaudid Pf Inj) (08/01/17 11:30) Ondansetron Inj (Zofran Inj) (08/01/17 11:30) Sodium Chlor 0.9% 1000 Ml Inj (Ns 1000 M (08/01/17 11:24) Hydromorphone Pf Inj (Dilaudid Pf Inj) (08/01/17 13:15) Ketorolac Inj (Toradol Inj) (08/01/17 13:30) Ed Discharge Order (08/01/17 13:52) Labs Laboratory Tests Test 08/01/17 11:30 White Blood Count 11.6 TH/MM3 Red Blood Count 4.64 MIL/MM3 Hemoglobin 13.0 GM/DL Hematocrit 38.4 % Mean Corpuscular Volume 82.9 FL Mean Corpuscular Hemoglobin 28.1 PG Mean Corpuscular Hemoglobin Concent 33.8 % Red Cell Distribution Width 14.8 % Platelet Count 232 TH/MM3 Mean Platelet Volume 9.9 FL Neutrophils (%) (Auto) 64.5 % Lymphocytes (%) (Auto) 28.8 % Monocytes (%) (Auto) 5.1 % Eosinophils (%) (Auto) 1.2 % Basophils (%) (Auto) 0.4 % Neutrophils # (Auto) 7.5 TH/MM3 Lymphocytes # (Auto) 3.3 TH/MM3 Monocytes # (Auto) 0.6 TH/MM3 Eosinophils # (Auto) 0.1 TH/MM3 Basophils # (Auto) 0.0 TH/MM3 CBC Comment DIFF FINAL Differential Comment Blood Urea Nitrogen 26 MG/DL Creatinine 1.45 MG/DL Random Glucose 245 MG/DL Calcium Level 9.8 MG/DL Magnesium Level 1.5 MG/DL Sodium Level 136 MEQ/L Potassium Level 4.5 MEQ/L Chloride Level 103 MEQ/L Carbon Dioxide Level 25.0 MEQ/L Anion Gap 8 MEQ/L Estimat Glomerular Filtration Rate 44 ML/MIN C-Reactive Protein 2.10 MG/DL MDM Medical Decision Making Medical Screen Exam Complete: Yes Emergency Medical Condition: Yes Medical Record Reviewed: Yes Interpretation(s) CBC & BMP Diagram 08/01/17 11:30 Calcium Level 9.8, Magnesium Level 1.5 CRP in the 2s Last Impressions Lower Extremity Ultrasound 08/01/17 0000 Signed Impressions: Service Date/Time: Tuesday, August 01, 2017 12:34 - CONCLUSION: No DVT. Zen Arteaga MD Knee X-Ray 08/01/17 0000 Signed Impressions: Service Date/Time: Tuesday, August 01, 2017 12:26 - CONCLUSION: 1. Small joint effusion. 2. Total knee arthroplasty in good position. Surendra Anguiano Jr., MD Differential Diagnosis Acute on chronic pain versus chronic pain versus sepsis versus DVT versus septic joint versus gout versus inflammatory disease versus diabetes Narrative Course 62-year-old female that presents to the ED for evaluation of left knee pain. Patient was properly examined and was found to have signs and symptoms for possible DVT versus infection. Cerumen appears to be chronic. Suspect most of it might be chronic. Patient has not been able to do physical therapy and this could be related to that. She does however have a history of recent surgery and has been more bedridden because of the pain. I do recommend ultrasound and imaging. Labs were drawn. Patient was given IV pain medications and fluids. Labs and imaging showed elevated CRP and small joint effusion was unremarkable. Patient was given IV pain medications with some relief. I had my attending Dr Hastings evaluated the patient to evaluate whether we can discharge the patient. Patient apparently told her and me that she wanted us to give her enough pills that she can have an of pain management until August 06. Per patient she wants us to give her the medications and not a prescription as she has a pain management doctor and cannot get a prescription filled from another doctor. She was told that unfortunately we cannot do this. I did give her a prescription for diclofenac sodium and told her that she needs to make her appointment with her pain management tomorrow. Close follow with PCP. See ED worsening symptoms. My attending evaluated her and recommends against any Of the knee secondary to low suspicion of septic joint as well as this being more of a chronic pain and patient wanted more pain management than anything. Diagnosis Primary Impression: Knee pain, chronic Qualified Codes: M25.562 - Pain in left knee; G89.29 - Other chronic pain Additional Impression: Status post left knee replacement Patient Instructions: General Instructions, Narcotic given in the ED Additional Instructions: Make an earlier appointment with your pain management for tomorrow to see if he can get the prescriptions filled by your pain management. We cannot give you pain pills here in the ED. Apply ice or warm compresses to the areas of pain. See ED for worsening symptoms. Follow with PCP. Med/Other Pt SpecificInfo: Prescription(s) given Scripts Diclofenac Sodium DR (Diclofenac Sodium DR) 75 Mg Tabdr 75 MG PO BID Y for PAIN SCALE 1 TO 10, #20 TAB 0 Refills Prov: Bronwyn Hastings DO 08/01/17 Disposition: 01 DISCHARGE HOME Condition: Stable Jose Ramon Ramos Aug 01, 2017 11:47
[2017-08-01 11:48] LABS: AUTOMATED NEUTROPHIL # 7.5 TH/MM3 (1.8-7.7); BASOPHIL % 0.4 % (0.0-2.0); EOSINOPHIL # 0.1 TH/MM3 (0-0.4); EOSINOPHIL % 1.2 % (0.0-4.0); HEMATOCRIT 38.4 % (35.0-46.0); HEMO FLAGS DIFF FINAL; LYMPH % 28.8 % (9.0-44.0); LYMPHOCYTE # 3.3 TH/MM3 (1.0-4.8); MEAN CELL VOLUME 82.9 FL (80.0-100.0); MEAN CORPUSCULAR HEMOGLOBIN 28.1 PG (27.0-34.0); MEAN CORPUSCULAR HGB CONC 33.8 % (32.0-36.0); MONO % 5.1 % (0.0-8.0); NEUT % 64.5 % (16.0-70.0); PLATELET COUNT 232 TH/MM3 (150-450); RED BLOOD COUNT 4.64 MIL/MM3 (4.00-5.30); RED CELL DISTRIBUTION WIDTH 14.8 % (11.6-17.2); WHITE BLOOD COUNT 11.6 TH/MM3 (4.0-11.0)
[2017-08-01 12:06] LABS: MAGNESIUM 1.5 MG/DL (1.5-2.5); POTASSIUM 4.5 MEQ/L (3.5-5.1)
--- NOTE | 2017-08-01 13:07 | RADRPT ---
EXAM DATE/TIME: 08/01/2017 12:26 [facility] COMPARISON: KNEE LEFT COMPLETE (4VWS), July 07, 2017, 19:29. INDICATIONS : Left knee pain, No trauma MEDICAL HISTORY : Hypercholesterolemia. Hypertension. Chronic obstructive pulmonary disease. Arthritis. Diabetes. Lupus SURGICAL HISTORY : Fibroid surgery. Genitourinary surgery, cyst removal. Bilateral knee repair.Left rotator cuff surgery . Abdominal surgery, unspecified ENCOUNTER: Initial ACUITY: 1 day PAIN SCORE: 9/10 LOCATION: Left knee FINDINGS: 4 views of the knee show a total knee No fracture or dislocation is observed. No soft tissue swelling is noted. A small joint effusion is observed. Atherosclerotic calcifications involving the popliteal artery. CONCLUSION: 1. Small joint effusion. 2. Total knee arthroplasty in good position. Surendra Anguiano Jr., MD on August 01, 2017 at 13:04 Board Certified Radiologist. This report was verified electronically.
--- NOTE | 2017-08-01 13:10 | RADRPT ---
EXAM DATE/TIME: 08/01/2017 12:34 [facility] COMPARISON: US LEG LEFT VENOUS DOPPLER, July 07, 2017, 18:58. INDICATIONS : Left leg pain and swelling. MEDICAL HISTORY : Hypertension. Hypercholesterolemia. Chronic obstructive pulmonary disease. Renal disease. Arthrit is. Diabetes. Lupus. SURGICAL HISTORY : Fibroid removal. Bilateral knee repair. Left rotator cuff surgery. ENCOUNTER: Subsequent ACUITY: 2 months PAIN SCORE: 7/10 LOCATION: Left leg. TECHNIQUE: Venous ultrasound of the leg was performed from the inguinal ligament to the proximal calf. Real-janina e, color Doppler and spectral tracing, compression and augmentation techniques were used. FINDINGS: There is normal compressibility of the deep venous system from the inguinal region to the proximal ca lf. No echogenic clot is seen in the lumen of the common femoral, femoral, popliteal, and posterior tibial veins. There is a normal response of the venous system to proximal and distal augmentation an d respiration. There is a prominent 2.5 x 1.6 x 0.8 cm lymph node in the left inguinal region. CONCLUSION: No DVT. Zen Arteaga MD on August 01, 2017 at 13:08 Board Certified Radiologist. This report was verified electronically.
[2017-08-01] MEDS ORDERED: KETOROLAC TROMETHAMINE 30 MG/ML (IVP) VIAL IV PUSH ONE (13:30)
[2017-08-01] MEDS ORDERED: DICL75TA PO (13:51)
[2017-08-04] MEDS ORDERED: ALBUAER3 INH (16:22)
[2017-08-04] MEDS ORDERED: FLUT50SP EACH NARE (16:22)
[2017-08-06] MEDS ORDERED: BLOO1EAC16 (15:12)
[2017-08-06] MEDS ORDERED: INFL1INJ55 I-DERMAL (15:14)
[2017-08-06] MEDS ORDERED: INFL1INJ56 IM (15:16)
[2017-08-07] MEDS ORDERED: MEDR4PAK PO (12:26)
[2017-08-07] MEDS ORDERED: QUET150XR PO (12:26)
[2017-08-07] MEDS ORDERED: GABA300C5 PO (12:26)
[2017-08-11] MEDS ORDERED: ONETTES4 (08:42)
== END 2017-08-01 14:17 | disposition home or self-care (01) ==
LOC: NEPC 10:52
DX: M25.562 Pain in left knee (principal); G89.29 Other chronic pain; M25.462 Effusion, left knee; M79.605 Pain in left leg; M06.9 Rheumatoid arthritis, unspecified; M32.9 Systemic lupus erythematosus, unspecified; J44.9 Chronic obstructive pulmonary disease, unspecified; E11.9 Type 2 diabetes mellitus without complications; I10 Essential (primary) hypertension
CPT/HCPCS: 73564; 80048; 83735; 85025; 86140; 87040; 93971; 96361; 96374; 96375; 96376; 99285; J1170; J1885; J2405; J7030

== ENCOUNTER 2017-10-27 14:30 | Emergency (ER) | payer MEDICAID ==
[~2017-10-27] VITALS: Ht 160 cm; Wt 76.8 kg
[~2017-10-27 14:30] MED LIST changes: -APIX5TAB PO; -ASPI81TA5 PO; +BLOO1EAC16; +BLOOD GLUCOSE M1 KIT; +ECASA81 PO; +GABA300C5 PO; +GLIP5TAB8 PO; +MONT10TA4 PO; +ONETTES4; -OXYC-395 PO; -PERI8.6T PO; -RAISED TOILET S1 MI1; +TRAZ100T10 PO; +VARE1PAK3 PO
[2017-10-27 14:32] VITALS: BP 129/80; PULSE 109; RESP 20; TEMP 98.7; O2SAT 99
--- NOTE | 2017-10-27 15:24 | RADRPT ---
EXAM DATE/TIME: 10/27/2017 15:09 [facility] COMPARISON: CHEST SINGLE AP, July 07, 2017, 18:50. INDICATIONS : Fall. Right shoulder pain. MEDICAL HISTORY : None. SURGICAL HISTORY : None. ENCOUNTER: Initial ACUITY: 1 day PAIN SCORE: 10/10 LOCATION: Right shoulder FINDINGS: There is moderate arthritic change in the acromioclavicular joint with some downward spurring present . There is some lateral downsloping and spurring of the distal acromion. Slight sclerotic irregularit y is present at the greater tuberosity. There is no definite evidence of fracture or dislocation. The adjacent clavicle and ribs appear intact. CONCLUSION: Arthritic changes. No acute bony injury Zen Salazar MD on October 27, 2017 at 15:19 Board Certified Radiologist. This report was verified electronically.
--- NOTE | 2017-10-27 15:25 | RADRPT ---
EXAM DATE/TIME: 10/27/2017 15:12 [facility] COMPARISON: No previous studies available for comparison. INDICATIONS : Fall. Left knee pain. MEDICAL HISTORY : None. SURGICAL HISTORY : Total knee replacement, left. ENCOUNTER: Initial ACUITY: 1 day PAIN SCORE: 10/10 LOCATION: Left knee FINDINGS: Left total knee arthroplasty is present. Hardware appears intact. Alignment is anatomic. There is no evidence of fracture or joint effusion. There are vascular calcifications in the soft tissues. CONCLUSION: No acute bony injury Zen Salazar MD on October 27, 2017 at 15:20 Board Certified Radiologist. This report was verified electronically.
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
[2017-10-27] MEDS ORDERED: IBUP1TAB7 PO (17:16)
[2017-10-27] MEDS ORDERED: WALKER/ADULT/FO1 MIS (17:18)
[2017-10-27] MEDS ORDERED: ONETKIT9 (18:20)
== END 2017-10-27 17:32 | disposition home or self-care (01) ==
LOC: NEPK 14:30
DX: M25.511 Pain in right shoulder (principal); S89.92XA Unspecified injury of left lower leg, initial encounter; M06.9 Rheumatoid arthritis, unspecified; M32.9 Systemic lupus erythematosus, unspecified; I10 Essential (primary) hypertension; E78.5 Hyperlipidemia, unspecified; J44.9 Chronic obstructive pulmonary disease, unspecified; E11.9 Type 2 diabetes mellitus without complications; W22.8XXA Striking against or struck by other objects, initial encounter
CPT/HCPCS: 73030; 73564; 99284